=== PATIENT | male | born 1995 | race Caucasian/White ===

== ENCOUNTER 2016-05-14 22:26 | Emergency (ER) | payer BC, OTHER ==
[~2016-05-14] VITALS: Ht 175.3 cm; Wt 61.4 kg
[2016-05-14 23:51] LABS: INFLUENZA B NEGATIVE
[2016-05-15 00:32] VITALS: BP 125/59; PULSE 108; TEMP 99.4
== END 2016-05-15 00:29 | disposition home or self-care (01) ==
LOC: COL.ER 22:26
PROVIDERS: Physician Assistant
DX: J11.1 Influenza due to unidentified influenza virus with other respiratory manifestations (principal)

== ENCOUNTER 2016-05-19 12:09 | Emergency (ER) | payer BC, OTHER ==
[~2016-05-19] VITALS: Ht 175.3 cm; Wt 61.4 kg
[2016-05-19 12:10] VITALS: BP 127/93; PULSE 113; TEMP 100.8
[2016-05-19] MEDS ORDERED: AMOXICILLIN 8751 TAB PO (12:56)
== END 2016-05-19 13:00 | disposition home or self-care (01) ==
LOC: COL.ER 12:09
DX: H66.003 Acute suppurative otitis media without spontaneous rupture of ear drum, bilateral (principal)